=== PATIENT | male | born 1965 | race American Indian/Alaskan Native ===

== ENCOUNTER 2018-11-06 18:35 | Emergency (ER) | payer OTHER ==
[2018-11-06] MEDS ORDERED: XYLOCAINE 1% 20 mL INFILTRATI ONE (21:36)
--- NOTE | 2018-11-06 22:23 | XRay Report ---
PROCEDURE: XR HAND 2V LT TECHNIQUE: PROCEDURE: RIGHT HAND, 2 VIEWS TECHNIQUE: RIGHT hand radiographs, AP and lateral views. CPT 39353-OB HISTORY: COMPARISONS: None . FINDINGS: Fracture (s) and/or Dislocation(s): None . Alignment: Normal . Joint space(s): Normal . Soft tissues: There is soft tissue injury of the ulnar aspect . Bone mineralization: Normal . Foreign bodies: None . IMPRESSION: No fracture. No radiopaque foreign body. Soft tissue injury. HISTORY: cut on right hand from glass COMPARISONS: FINDINGS: IMPRESSION: . This document is electronically signed by Toby Leslie MD., November 06 2018 10:21:12 PM ET
--- NOTE | 2018-11-06 22:49 | Emergency Department Report ---
- General Chief Complaint: Wound/Laceration Stated Complaint: RT HAND INJURY/PAIN Time Seen by Provider: 11/06/18 21:24 Source: patient Mode of arrival: Ambulatory Limitations: No Limitations - History of Present Illness Initial Comments: 53-year-old -[place] male presents to the emergency room laceration to right hand from a light bulb. -: This evening Extremity Location: Right: Hand Place: home Patient Tetanus UTD: No Context: accidental Associated Symptoms: pain. denies: loss of feeling/numbness, unable to move injured part - Related Data Previous Rx's Medication Instructions Recorded Last Taken Type Ibuprofen [Motrin 600 MG tab] 600 mg PO Q8H PRN #21 tablet 11/06/18 Unknown Rx cephALEXin [Keflex] 500 mg PO Q12HR #14 cap 11/06/18 Unknown Rx Allergies Allergy/AdvReac Type Severity Reaction Status Date / Time No Known Allergies Allergy Unverified 11/06/18 18:37 ED Review of Systems ROS: Stated complaint: RT HAND INJURY/PAIN Other details as noted in HPI Comment: All other systems reviewed and negative ED Past Medical Hx - Past Medical History Previous Medical History?: No - Surgical History Past Surgical History?: No - Social History Smoking Status: Current Every Day Smoker Substance Use Type: Alcohol - Medications Home Medications: Home Medications Medication Instructions Recorded Confirmed Last Taken Type Ibuprofen [Motrin 600 MG tab] 600 mg PO Q8H PRN #21 tablet 11/06/18 Unknown Rx cephALEXin [Keflex] 500 mg PO Q12HR #14 cap 11/06/18 Unknown Rx ED Physical Exam - General Limitations: No Limitations General appearance: alert, in no apparent distress - Head Head exam: Present: atraumatic, normocephalic - Eye Eye exam: Present: EOMI - ENT ENT exam: Present: mucous membranes moist - Neck Neck exam: Present: normal inspection - Neurological Exam Neurological exam: Present: alert, oriented X3 - Psychiatric Psychiatric exam: Present: normal affect, normal mood - Skin Skin exam: Present: warm, dry, intact, normal color. Absent: rash - Expanded Skin Exam Expanded Type of lesion: Present: laceration Description of rash: Present: size (3), tenderness ED Course Vital Signs 11/06/18 18:54 Temperature 97.5 F L Pulse Rate 73 Respiratory 16 Rate Blood Pressure 141/91 O2 Sat by Pulse 98 Oximetry - Laceration /Wound Repair Right Hand Wound Location: upper extremity (right hand) Wound's Depth, Shape: into muscle Wound Explored: clean Betadine Prep?: Yes Anesthesia: 1% Lidocaine Volume Anesthetic (ccs): 8 Wound Repaired With: sutures Suture Size/Type: 5:0 Layer Closure?: No Number Deep Layer Sutures: 5 Sterile Dressing Applied?: Yes Progress: tolerated well ED Medical Decision Making - Radiology Data Radiology results: report reviewed Patient: GARETT DUKES MR#: [id number] 9 : 1965 Acct:[id number] Age/Sex: 53 / M ADM Date: 11/06/18 Loc: ED Attending Dr: Ordering Physician: STEFANIA RAUSCH Date of Service: 11/06/18 Procedure(s): XR hand 2V LT Accession Number(s): [id number] cc: STEFANIA RAUSCH Fluoro Time In Minutes: PROCEDURE: XR HAND 2V LT TECHNIQUE: PROCEDURE: RIGHT HAND, 2 VIEWS TECHNIQUE: RIGHT hand radiographs, AP and lateral views. CPT 22993-SC HISTORY: COMPARISONS: None . FINDINGS: Fracture (s) and/or Dislocation(s): None . Alignment: Normal . Joint space(s): Normal . Soft tissues: There is soft tissue injury of the ulnar aspect . Bone mineralization: Normal . Foreign bodies: None . IMPRESSION: No fracture. No radiopaque foreign body. Soft tissue injury. HISTORY: cut on right hand from glass COMPARISONS: FINDINGS: IMPRESSION: . This document is electronically signed by Jonna Ingram MD., November 06 2018 10:21:12 PM ET Transcribed By: BRP Dictated By: JONNA INGRAM MD Electronically Authenticated By: JONNA INGRAM MD Signed Date/Time: 11/06/182222 DD/ 50 TD/TT: 11/06/182150 - Medical Decision Making Patient seen by this provider in [facility]. Critical care attestation.: If time is entered above; I have spent that time in minutes in the direct care of this critically ill patient, excluding procedure time. ED Disposition Clinical Impression: Laceration of right hand Qualifiers: Encounter type: initial encounter Foreign body presence: without foreign body Qualified Code(s): S61.411A - Laceration without foreign body of right hand, initial encounter Disposition: DC-01 TO HOME OR SELFCARE Is pt being admited?: No Does the pt Need Aspirin: No Condition: Stable Instructions: Suture Care (ED), Laceration (ED) Additional Instructions: Complete antibiotics as prescribed. Pain medication as needed. Return back to the ER in 7-10 days for suture removal. Return sooner if there is any signs of infection such as swelling redness purulent discharge spiking of a fever. Prescriptions: cephALEXin [Keflex] 500 mg PO Q12HR #14 cap Ibuprofen [Motrin 600 MG tab] 600 mg PO Q8H PRN #21 tablet PRN Reason: Pain Forms: Work/School Release Form(ED)
[2018-11-06] MEDS ORDERED: BOOSTRIX IM ONE (23:33)
[2018-11-06 23:53] VITALS: BP 118/88
== END 2018-11-07 00:04 | disposition home or self-care (01) ==
LOC: ED 18:35
DX: S61.411A Laceration without foreign body of right hand, initial encounter (principal); F17.200 Nicotine dependence, unspecified, uncomplicated; W45.8XXA Other foreign body or object entering through skin, initial encounter; Y93.89 Activity, other specified; Y92.89 Other specified places as the place of occurrence of the external cause; Y99.8 Other external cause status
CPT/HCPCS: 90471; 90715